=== PATIENT | female | born 1960 | race Caucasian/White ===

== ENCOUNTER → 2022-11-16 08:11 | Outpatient (CLI) | payer OTHER, SELFPAY ==
--- NOTE | 2022-11-16 | DI.MG.S_ITS ---
BILATERAL DIGITAL SCREENING MAMMOGRAM 3D/2D WITH CAD: 11/16/2022 CLINICAL: Family history of breast cancer. Routine screening. Personal history of left breast cancer. Comparison is made to exam dated: 05/04/2021 mammogram - out side. Both breasts are almost entirely fatty (category a/<25% glandular tissue). Current study was also evaluated with a Computer Aided Detection (CAD) system. Both breasts have post-operative findings. There are grouped fine heterogeneous calcifications in the left breast at 11 o'clock middle depth. These are more prominent and increased in number. Grouped calcifications in the right breast in a rim like distribution likely represent fat necrosis. No other significant masses, calcifications, or other findings are seen in either breast. IMPRESSION: INCOMPLETE: NEEDS ADDITIONAL IMAGING EVALUATION The grouped fine heterogeneous calcifications in the left breast resemble fat necrosis or sequelae of previous surgery and are indeterminate. Diagnostic mammogram for additional views to include mediolateral and spot magnification views is recommended. This exam was interpreted at Station ID: [id number]. NOTE: For mammograms, a report in lay terms will be sent to the patient. Approximately 15% of breast malignancies will not be visualized mammographically. In the management of a palpable breast mass, a negative mammogram must not discourage biopsy of a clinically suspicious lesion. Electronically Signed By: Gabriele Anderson M.D. aty/:11/17/2022 14:59:06 letter sent: Additional Imaging Needed ACR BI-RADS Category 0: Incomplete 3340F
== END ==
PROVIDERS: PCP Family Medicine; Referring Provider Family Medicine; Visit Provider Family Medicine
DX: Z12.31 Encounter for screening mammogram for malignant neoplasm of breast (principal); Z85.3 Personal history of malignant neoplasm of breast; Z80.3 Family history of malignant neoplasm of breast
CPT/HCPCS: 77063; 77067

== ENCOUNTER → 2022-12-06 08:35 | Outpatient (CLI) | payer OTHER, SELFPAY ==
--- NOTE | 2022-12-06 | DI.MG.S_ITS ---
UNILATERAL LEFT DIGITAL DIAGNOSTIC MAMMOGRAM 3D/2D WITH ADDITIONAL VIEWS: 12/06/2022 CLINICAL: Additional evaluation requested from prior study. Comparison is made to exams dated: 11/16/2022 mammogram - and 05/04/2021 mammogram - out [facility]. There are scattered areas of fibroglandular density in the left breast (category b / 25%-50% glandular tissue). The left breast has post-operative findings. There are grouped dystrophic heterogeneous calcifications in the left breast at 11 o'clock middle depth. These are seen in additional views. These are more prominent and increased in number compared to previous examination. No other significant masses or calcifications are seen in the breast. IMPRESSION: PROBABLY BENIGN The grouped dystrophic heterogeneous calcifications in the left breast resemble fat necrosis secondary to previous surgery and are probably benign. A follow-up left mammogram in 6 months is recommended to demonstrate stability. Findings and recommendations were conveyed to the patient during today's evaluation. This exam was interpreted at Station ID: [id number]. NOTE: For mammograms, a report in lay terms will be sent to the patient. Approximately 15% of breast malignancies will not be visualized mammographically. In the management of a palpable breast mass, a negative mammogram must not discourage biopsy of a clinically suspicious lesion. Electronically Signed By: Gabriele Anderson M.D. aty/:12/06/2022 09:13:05 letter sent: Followup Recommended ACR BI-RADS Category 3: Probably benign 3343F
== END ==
PROVIDERS: PCP Family Medicine; Referring Provider Family Medicine; Visit Provider Family Medicine
DX: R92.1 Mammographic calcification found on diagnostic imaging of breast (principal)
CPT/HCPCS: 77065; G0279

== ENCOUNTER → 2023-02-20 13:18 | Outpatient (CLI) | payer OTHER, SELFPAY | PROVIDERS: PCP Family Medicine; Visit Provider Physician Assistant | DX: N89.8 Other specified noninflammatory disorders of vagina (principal) | CPT/HCPCS: 87210 ==

== ENCOUNTER → 2023-02-22 08:38 | Outpatient (CLI) | payer OTHER, SELFPAY ==
[2023-02-22 09:29] LABS: Hemoglobin A1C% w Est Avg Glu 5.4 % (4.0-6.0)
[2023-02-22 09:53] LABS: Alanine Aminotransferase 26 IU/L (<35); Albumin Globulin Ratio 1.3 (1.0-2.8); Alkaline Phosphatase 74 U/L (38-126); Aspartate Aminotransferase 28 IU/L (14-36); BUN Creatinine Ratio 21.1 (6-22); Bilirubin Total 0.8 mg/dL (0.2-1.3); Blood Urea Nitrogen 16 mg/dL (7-17); Calcium 9.7 mg/dL (8.4-10.2); Carbon Dioxide 28 mmol/L (22-32); Chloride 101 mmol/L (98-107); Cholesterol 202 mg/dL (140-199); Estimated Glomerular Filt Rate > 60 mL/min (>60); Globulin 3.2 g/dL (1.7-4.1); Glucose 98 mg/dL (80-110); HDL Cholesterol 49 mg/dL (40-60); HEMOLYSIS < 15 (0-50); LDL Cholesterol Calculated 130 mg/dL (<100); Potassium 3.9 mmol/L (3.4-5.1); Sodium 137 mmol/L (137-145); Total Protein 7.2 g/dL (6.3-8.2); Triglycerides 114 mg/dL (35-150)
[2023-02-22 10:11] LABS: TSH w/ Reflex to FT4 1.72 uIU/mL (0.47-4.68)
== END ==
PROVIDERS: PCP Family Medicine; Referring Provider Family Medicine; Visit Provider Family Medicine
DX: E78.5 Hyperlipidemia, unspecified (principal); E03.9 Hypothyroidism, unspecified; I10 Essential (primary) hypertension
CPT/HCPCS: 36415; 80053; 80061; 83036; 84443

== ENCOUNTER → 2023-04-24 10:06 | Outpatient (CLI) | payer OTHER, SELFPAY ==
--- NOTE | 2023-04-24 10:07 | DI.US.S_ITS ---
PROCEDURE: US PELVIC COMPLETE INDICATIONS: ATYPICAL GLANDULAR CELLS UNSPECIFIED TECHNIQUE: Real-time scanning was performed of the pelvic organs, with image documentation. Additional endovaginal scanning was necessary due to incomplete visualization of the adnexal and endometrial structures by transabdominal scanning. COMPARISON: None. FINDINGS: Uterus: Uterus is anteverted and normal in size at the 7.2 x 4.3 x 3.6 cm. The myometrium is heterogeneous. The endometrium measures 5.2 mm combined thickness. The endometrium appears irregular with mild fluid and focal area of irregularity measuring 6 x 7 x 3 mm with no internal vascularity. Right posterior subserosal heterogeneous area measuring 1.3 x 1.6 x 1.2 cm. There are nabothian cysts. Ovaries: The bilateral ovaries are not well seen. There is shadowing in the left adnexal region with a masslike region measuring 4.9 x 2.7 x 2 cm with internal vascularity. Other: No pathologic free abdominal or pelvic fluid. IMPRESSION: 1. Endometrium measures 5.2 mm in combined thickness and appears irregular with mild fluid and focal area of irregularity measuring 6 x 7 x 3 mm. 2. Questionable right posterior subserosal heterogeneous fibroid. 3. Bilateral ovaries are not well seen. There is shadowing in the left adnexal region with a masslike region measuring 4.9 x 2.7 x 2 cm with internal vascularity which is indeterminate. Recommend an MRI of the pelvis for further evaluation of these findings. Dictated by: Eve Nelson M.D. on 04/24/2023 at 18:02 Approved by: Eve Nelson M.D. on 04/24/2023 at 18:12
== END ==
LOC: US 10:06
PROVIDERS: PCP Family Medicine; Referring Provider Obstetrics & Gynecology; Visit Provider Obstetrics & Gynecology
DX: N92.6 Irregular menstruation, unspecified (principal); R87.619 Unspecified abnormal cytological findings in specimens from cervix uteri; R93.89 Abnormal findings on diagnostic imaging of other specified body structures
CPT/HCPCS: 76830; 76856

== ENCOUNTER → 2023-06-12 08:21 | Outpatient (CLI) | payer OTHER, SELFPAY ==
[2023-06-14 10:36] LABS: Cancer Antigen 125 9.4 U/mL (0-35)
== END ==
PROVIDERS: PCP Family Medicine; Referring Provider Obstetrics & Gynecology; Visit Provider Obstetrics & Gynecology
DX: N94.89 Other specified conditions associated with female genital organs and menstrual cycle (principal); R87.619 Unspecified abnormal cytological findings in specimens from cervix uteri; R93.5 Abnormal findings on diagnostic imaging of other abdominal regions, including retroperitoneum
CPT/HCPCS: 36415; 86304

== ENCOUNTER 2023-06-15 09:28 | Day surgery (SDC) | payer OTHER, SELFPAY ==
[2023-06-04 12:24] VITALS: BMI 28.3
[2023-06-15] VITALS (7 sets, daily range): BP systolic 93–146; BP diastolic 50–96; PULSE 69–88; RESP 12–16; TEMP 36.2–37; O2SAT 98–100; BMI 28.3
--- NOTE | 2023-06-15 | PATH_ITS ---
[facility] Accession Number: [id number] No. of containers..02 Tissue . 01 Material submitted: . PART A: endocervix - ENDOCERVICAL CURETTINGS PART B: endometrium - ENDOMETRIAL CURETTINGS . 01 Diagnosis: A. ENDOCERVICAL CURETTINGS: Benign endocervical tissue. No dysplasia or malignancy. . B. ENDOMETRIUM, CURETTINGS: Features suggestive of benign endometrial polyp. Inactive glandular endometrium. No endometrioid intraepithelial neoplasia, and no malignancy. [facility] 06/21/2023 1427 Local . 01 Electronically signed: . Collette James MD, Pathologist NPI- [id number] . 01 Gross description: . Part A: ENDOCERVICAL CURETTINGS: Received in formalin are minute fragments of mucoid and hemorrhagic material measuring 1.5 x 1.5 x 0.2 cm in aggregate. Submitted in toto in 1 cassette. Part B: ENDOMETRIAL CURETTINGS: Received in formalin are minute fragments of mucoid and hemorrhagic material measuring 1.2 x 1.2 x 0.2 cm in aggregate. Submitted in toto in 1 cassette. /W[facility] 06/18/2023 1849 Local . 01 Pathologist provided ICD-10: R93.89, R87.619, N87.0 . 01 CPT . 432402 Specimen Comment: A courtesy copy of this report has been sent to [phone] Performed at: 01 [facility] [address] [place] [address], [place], [place] [id number] MD Franko Campo MD Phone: [phone]
[2023-06-15] MEDS: LACTATED RINGERS 1,000 ML 42 ML IV (10:20)
[2023-06-15] MEDS: ACETAMINOPHEN 325 MG TABLET 975 MG PO (10:22)
--- NOTE | 2023-06-15 11:17 | PM.PREOP ---
Pre-operative Note COVID-19 COVID-19 status: Not tested Interval Note History & Physical reviewed/Exam performed by Physician: Yes Changes to H&P: No
--- NOTE | 2023-06-15 12:13 | SUR.OPER ---
Lithotomy on padded OR bed, head on pillow, arms secured on padded arm boards at <90 degrees abduction. Legs secured in padded yellow fins stirrups.
[2023-06-15] MEDS: SILVER NITRATE STICK 2 EACH TOP (12:21)
--- NOTE | 2023-06-15 12:29 | PM.GYNOP.1 ---
Operative Date/Time/Diagnoses Date of procedure: 06/15/23 Time of procedure: 11:45 Pre-op diagnosis: Postmenopausal bleeding Thickened endometrial stripe on US Post-op diagnosis: other Procedure & Clinicians Procedure: Procedures Operation Date: 06/15/23 10:45 Actual Procedure Side Surgeon p Hysteroscopy with possible biopsies, dilation & currettage of uterus Mitchell Aguilar MD Indications: Chloe presentedin May for colposcopy and possible ECC/EMB due to her most recent Pap performed 02/20/2023 which shows atypical glandular cells of uncertain significance. HPV testing is negative. Patient has not had any prior abnormals and has had no postmenopausal bleeding. A follow-up pelvic ultrasound performed 04/24/2023 shows: FINDINGS: Uterus: Uterus is anteverted and normal in size at the 7.2 x 4.3 x 3.6 cm. The myometrium is heterogeneous. The endometrium measures 5.2 mm combined thickness. The endometrium appears irregular with mild fluid and focal area of irregularity measuring 6 x 7 x 3 mm with no internal vascularity. Right posterior subserosal heterogeneous area measuring 1.3 x 1.6 x 1.2 cm. There are nabothian cysts. Ovaries: The bilateral ovaries are not well seen. There is shadowing in the left adnexal region with a masslike region measuring 4.9 x 2.7 x 2 cm with internal vascularity. Other: No pathologic free abdominal or pelvic fluid. IMPRESSION: 1. Endometrium measures 5.2 mm in combined thickness and appears irregular with mild fluid and focal area of irregularity measuring 6 x 7 x 3 mm. 2. Questionable right posterior subserosal heterogeneous fibroid. 3. Bilateral ovaries are not well seen. There is shadowing in the left adnexal region with a masslike region measuring 4.9 x 2.7 x 2 cm with internal vascularity which is indeterminate. We have discussed options for further evaluation regarding the abnormal endometrial findings as well as the atypical glandular cells noted on her Pap. After discussion regarding all options, she wishes to proceed with hysteroscopy with possible biopsies, and dilation and curettage of the uterus. She presents today for her scheduled surgery. Surgeon: Mitchell Aguilar Anesthesia Type: General Operative Notes Findings: Atrophic endometrium without focal abnormalities. Both tubal ostia visualized and unremarkable. Scant ECC and EMC obtained. Closure Type: not applicable Specimen(s): endometrial curettings and other (Endocervical curettings) Estimated blood loss (mL): 5 Blood products transfused: none Procedure in detail: With the patient under general LMA in the modified dorsal lithotomy position, the perineum, vagina, and lower abdomen were prepped and draped in the usual fashion for hysteroscopy with endometrial ablation. A pre-surgical safety time-out was then taken in accordance with [facility] Main OR protocols. A bivalve speculum was inserted in the vagina and the cervix visualized. The anterior lip of the cervix was grasped with a single-tooth tenaculum and the endocervical canal was then dilated to 6 mm diameter. Hysteroscope was placed through the endocervical canal into the endometrial cavity and the cavity was visualized. There were no localized abnormalities within the endometrial cavity and the endometrium itself was unremarkable. Both tubal ostia were visualized. The hysteroscope was then withdrawn and a fractional dilation and curettage was accomplished with separate pathologic specimen submitted for the endometrial and endocervical curettings. The tenaculum was then removed from the anterior lip of the cervix and light bleeding encountered which was easily controlled with AgNO3. The speculum was then removed from the vagina and the patient awakened from anesthesia. She was then transferred to the PACU for a period of observation and recovery having tolerated the procedure well. Complications: none Post-operative Condition: stable Disposition: PACU Plan for aftercare: Routine post-op care.
[2023-06-15] MEDS: OXYCODONE IR 5 MG TABLET PO (12:44)
== END 2023-06-15 13:18 | disposition home or self-care (01) ==
PROVIDERS: PCP Family Medicine; Referring Provider Obstetrics & Gynecology; Visit Provider Obstetrics & Gynecology
PROC: 0UDB8ZZ Extraction of Endometrium, Via Natural or Artificial Opening Endoscopic (ICD-10-PCS; CPT 58558; principal; 2023-06-15 10:45)
DX: R93.89 Abnormal findings on diagnostic imaging of other specified body structures (principal); R87.619 Unspecified abnormal cytological findings in specimens from cervix uteri; N95.0 Postmenopausal bleeding
CPT/HCPCS: 58558; J1100; J1885; J2405; J2704; J3010

== ENCOUNTER → 2023-06-18 08:39 | Outpatient (CLI) | payer OTHER, SELFPAY ==
--- NOTE | 2023-06-18 08:41 | DI.MG.S_ITS ---
UNILATERAL LEFT DIGITAL DIAGNOSTIC MAMMOGRAM 3D/2D SHORT-TERM FOLLOW-UP POST MASTECTOMY: 06/18/2023 CLINICAL: Patient returns for a 6 month follow up of the left breast. Comparison is made to exams dated: 12/06/2022 mammogram, 11/16/2022 mammogram - [facility], and 05/04/2021 mammogram - out side. There are scattered areas of fibroglandular density in the left breast (category b / 25%-50% glandular tissue). The left breast has post-operative findings. There isare stable dystrophic heterogeneous calcifications in the left breast at 12 o'clock middle depth. No other significant masses or calcifications are seen in the breast. IMPRESSION: PROBABLY BENIGN The stable dystrophic heterogeneous calcifications in the left breast are most consistent with fat necrosis or a previous surgery and are probably benign. A follow-up mammogram in 6 months is recommended to demonstrate stability. If determined stable at that time, please consider return to screening mammogram schedule. This exam was interpreted at Station ID: [id number]. NOTE: For mammograms, a report in lay terms will be sent to the patient. Approximately 15% of breast malignancies will not be visualized mammographically. In the management of a palpable breast mass, a negative mammogram must not discourage biopsy of a clinically suspicious lesion. Electronically Signed By: Jesusita villalobos/:06/18/2023 09:25:40 letter sent: Followup Recommended ACR BI-RADS Category 3: Probably benign 3343F
== END ==
LOC: MAMMO 08:41
PROVIDERS: PCP Family Medicine; Referring Provider Family Medicine; Visit Provider Family Medicine
DX: R92.8 Other abnormal and inconclusive findings on diagnostic imaging of breast (principal); R92.1 Mammographic calcification found on diagnostic imaging of breast
CPT/HCPCS: 77065; G0279

== ENCOUNTER → 2023-06-30 13:29 | Outpatient (CLI) | payer OTHER, SELFPAY ==
--- NOTE | 2023-06-30 13:30 | DI.MRI.S_ITS ---
PROCEDURE: MR PELVIS WO/W CON INDICATIONS: Poss. vascular L) adnexal mass on US TECHNIQUE: Coronal HASTE, sagittal breath-hold T2 FSE; axial T1 FSE with and without fat saturation through the pelvis. Optional long- and short-axis uterine nonbreath-hold T2 FSE through the uterus. Sagittal or axial dynamic VIBE during administration of contrast. Post-contrast axial or coronal VIBE/2-D FLASH with fat saturation from the iliac crests to the symphysis. Optional diffusion weighted imaging and ADC may be performed. COMPARISON: [facility], US, US PELVIC COMPLETE, 04/24/2023, 10:24. FINDINGS: Image quality: Excellent. Uterus: Uterus is normal in size. Endometrium is normal in thickness. Junctional zone is normal in thickness at 12 mm or less. Nabothian cysts are present. Uterine fibroids are present, including a degenerating subserosal fibroid at the fundus measuring 9 mm (series 4, image 11), and a 1 cm intramural fibroid abutting the endometrial stripe at the fundus (series 4, image 13). In the left adnexa, there is a T1/T2 hypointense lesion which demonstrates enhancement similar to the surrounding myometrium (series 17, image 64). This measures 4.9 x 2.5 cm. This appears separate from the adjacent ovary (series 17, image 58). Questionable stalk is seen at the base, attached to the cervix (series 17, image 68). Adnexa: Both ovaries are atrophic, without mass. Urinary system: Bladder wall is normal in thickness. Distal ureters are non distended. Urethra appears normal in morphology. Nodes and vessels: No pelvic or inguinal adenopathy by size criteria. Iliac vessels are normal in size. Bowel and peritoneum: No pathologic free pelvic fluid. Inferior colon and small bowel loops are normal in caliber. Colonic diverticulosis without evidence of diverticulitis. Soft tissues: No inguinal hernias. No findings of pelvic floor incompetence in the absence of provocation. Bones: Marrow demonstrates normal overall signal. IMPRESSION: Left adnexal mass measuring 4.9 x 2.5 cm. Findings have imaging properties similar to the adjacent myometrium. Findings are favored to represent a pedunculated fibroid. This appears distinctly separate to the left ovary. Consider repeat ultrasound in 6-12 months to evaluate for stability. Known endometrial filling defect not well appreciated on this exam. No pelvic adenopathy. Dictated by: Humble Marte M.D. on 07/02/2023 at 9:56 Approved by: Humble Mrate M.D. on 07/02/2023 at 10:04
== END ==
PROVIDERS: PCP Family Medicine; Referring Provider Obstetrics & Gynecology; Visit Provider Obstetrics & Gynecology
DX: N94.89 Other specified conditions associated with female genital organs and menstrual cycle (principal); K57.90 Diverticulosis of intestine, part unspecified, without perforation or abscess without bleeding; N88.8 Other specified noninflammatory disorders of cervix uteri
CPT/HCPCS: 72197; A9579

== ENCOUNTER → 2023-12-26 12:37 | Outpatient (CLI) | payer OTHER, SELFPAY ==
--- NOTE | 2023-12-26 12:38 | DI.US.S_ITS ---
PROCEDURE: US PELVIC COMPLETE INDICATIONS: US MR imaging shows L adnesxa/uterine mass TECHNIQUE: Real-time scanning was performed of the pelvic organs, with image documentation. Additional endovaginal scanning was necessary due to incomplete visualization of the adnexal and endometrial structures by transabdominal scanning. COMPARISON: [facility], MR, MR PELVIS WO/W CON, 06/30/2023, 13:51. [facility], US, US PELVIC COMPLETE, 04/24/2023, 10:24. FINDINGS: Uterus: Uterus is anteverted and normal in size at 6.9 x 6.5 x 3.0 cm. The myometrium is homogeneous. The endometrium measures 6 mm combined thickness. Ovaries: The right ovary measures 2.0 x 1.0 x 1.5 cm, with a calculated ovarian volume of 1.6 cc. The left ovary measures 4.3 x 2.8 x 2.3 cm, with a calculated ovarian volume of 14.5 cc. The ovaries have a normal sonographic appearance. Less than 12 follicles can be seen in each ovary. Left ovary appears somewhat bilobed. Separate left adnexal mass is not discerned by ultrasound. Other: No pathologic free abdominal or pelvic fluid. IMPRESSION: Bilobed left ovary adjacent to the uterus may account for findings on the prior MRI. No ultrasound evidence of mass lesion. Consider additional 1 year follow-up Approved by: Reinier Ennis M.D. on 12/26/2023 at 17:58
--- NOTE | 2023-12-26 12:38 | DI.MG.S_ITS ---
BILATERAL DIGITAL DIAGNOSTIC MAMMOGRAM 3D/2D: 12/26/2023 CLINICAL: Patient returns for a 6 month follow up of the left breast, due for bilateral exam. Personal hx of left breast cancer. Comparison is made to exams dated: 06/18/2023 mammogram, 12/06/2022 mammogram, 11/16/2022 mammogram - [facility], and 05/04/2021 mammogram - out side. There are scattered areas of fibroglandular density (category b / 25%-50% glandular tissue). There are postoperative changes in the bilateral breasts with dystrophic and rim calcifications consistent with evolving fat necrosis. The previously described calcifications in the left breast at 12 o'clock middle depth demonstrate benign morphology consistent with evolving postoperative changes and fat necrosis. No other significant masses or calcifications are seen in either breast. IMPRESSION: BENIGN Bilateral postoperative changes with evolving fat necrosis and associated benign calcifications. No mammographic evidence of malignancy. Patient has history of reported bilateral nipple sparing mastectomies, however there appears to be remnant fibroglandular tissue seen in the bilateral breasts and patient cannot confirm mastectomy was performed. Recommend patient follow-up regarding surgical history (performed in [place]). If bilateral mastectomies were not performed, recommend routine annual mammogram screening. If mastectomies were performed, recommend clinical follow-up. Findings and recommendations were conveyed to the patient during today's evaluation. This exam was interpreted at Station ID: [id number]. NOTE: For mammograms, a report in lay terms will be sent to the patient. Approximately 15% of breast malignancies will not be visualized mammographically. In the management of a palpable breast mass, a negative mammogram must not discourage biopsy of a clinically suspicious lesion. Electronically Signed By: Willow Price M.D., Ph.D. eb/:12/26/2023 15:43:31 letter sent: Clinical Evaluation ACR BI-RADS Category 2: Benign
== END ==
PROVIDERS: PCP Family Medicine; Referring Provider Family Medicine; Visit Provider Family Medicine
DX: R92.8 Other abnormal and inconclusive findings on diagnostic imaging of breast (principal); Z85.3 Personal history of malignant neoplasm of breast; N94.89 Other specified conditions associated with female genital organs and menstrual cycle
CPT/HCPCS: 76830; 76856; 77066; G0279

== ENCOUNTER → 2024-02-14 08:04 | Outpatient (CLI) | payer OTHER, SELFPAY ==
[2024-02-14 08:50] LABS: Alanine Aminotransferase 20 IU/L (<35); Albumin 3.9 g/dL (3.5-5.0); Albumin Globulin Ratio 1.3 (1.0-2.8); Alkaline Phosphatase 71 U/L (38-126); Aspartate Aminotransferase 26 IU/L (14-36); BUN Creatinine Ratio 18.1 (6-22); Bilirubin Total 0.9 mg/dL (0.2-1.3); Blood Urea Nitrogen 15 mg/dL (7-17); Calcium 9.3 mg/dL (8.4-10.2); Carbon Dioxide 27 mmol/L (22-32); Chloride 103 mmol/L (98-107); Cholesterol 189 mg/dL (140-199); Estimated Glomerular Filt Rate > 60 mL/min (>60); Globulin 3.1 g/dL (1.7-4.1); Glucose 102 mg/dL (80-110); HDL Cholesterol 55 mg/dL (40-60); HEMOLYSIS < 15 (0-50); LDL Cholesterol Calculated 118 mg/dL (<100); Potassium 4.1 mmol/L (3.4-5.1); Sodium 136 mmol/L (137-145); Triglycerides 82 mg/dL (35-150)
[2024-02-14 09:18] LABS: TSH w/ Reflex to FT4 1.12 uIU/mL (0.47-4.68)
== END ==
PROVIDERS: PCP Family Medicine; Referring Provider Family Medicine; Visit Provider Family Medicine
DX: E03.9 Hypothyroidism, unspecified (principal); I10 Essential (primary) hypertension; E78.5 Hyperlipidemia, unspecified; Z85.3 Personal history of malignant neoplasm of breast
CPT/HCPCS: 36415; 80053; 80061; 84443

== ENCOUNTER → 2024-03-25 09:57 | Outpatient (CLI) | payer OTHER, SELFPAY ==
--- NOTE | 2024-03-25 09:58 | DI.RAD.S_ITS ---
PROCEDURE: XR FOOT LT MIN 3V INDICATIONS: pain distal 1st metatarsal. TECHNIQUE: 3 views of the foot were acquired. COMPARISON: None. 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 Slight hammertoe deformities 1st through 5th digits noted. Joints: Moderate degenerative change 1st MTP and mild degenerative changes interphalangeal joints noted. Soft tissues: Mild calcification of plantar tendon insertion on calcaneus. IMPRESSION: Chronic findings- as described Dictated by: Ghassan Ghosh M.D. on 03/26/2024 at 10:49 Approved by: Ghassan Ghosh M.D. on 03/26/2024 at 10:50
== END ==
PROVIDERS: PCP Family Medicine; Referring Provider Family Medicine; Visit Provider Family Medicine
DX: M79.672 Pain in left foot (principal); Q66.89 Other specified congenital deformities of feet
CPT/HCPCS: 73630

== ENCOUNTER → 2024-04-10 13:16 | Outpatient (CLI) | payer OTHER, SELFPAY | PROVIDERS: PCP Family Medicine; Visit Provider Family Medicine | DX: R35.0 Frequency of micturition (principal); R10.2 Pelvic and perineal pain; N89.8 Other specified noninflammatory disorders of vagina | CPT/HCPCS: 87077; 87086; 87186; 87210 ==

== ENCOUNTER → 2024-09-17 10:20 | Outpatient (CLI) | payer OTHER, SELFPAY ==
[2024-09-17 11:15] LABS: HEMOLYSIS < 15 (0-50); Potassium 3.9 mmol/L (3.4-5.1)
--- NOTE | 2024-09-17 11:15 | EKG_ITS ---
[place] [address] [place] [id number] Test Date: 2024-09-17 Pat Name: Chloe Walton Department: [facility] Room: Gender: Female [employer]: GISEL : 1960 Requested By: Order Number: [id number] Reading MD: Kam Flynn Measurements Intervals [place] Rate: 70 P: 23 DE: 188 QRS: -17 QRSD: 92 T: 20 QT: 394 QTc: 425 Interpretive Statements Normal sinus rhythm Cannot rule out Anterior infarct , age undetermined Electronically Signed On 09-18-2024 13:47:16 PDT by Kam Flynn
== END ==
PROVIDERS: PCP Family Medicine; Referring Provider Podiatrist; Visit Provider Podiatrist
DX: Z01.818 Encounter for other preprocedural examination (principal); E87.0 Hyperosmolality and hypernatremia
CPT/HCPCS: 36415; 84132; 93005

== ENCOUNTER → 2025-02-18 08:09 | Outpatient (CLI) | payer OTHER, SELFPAY ==
[2025-02-18 10:07] LABS: Alanine Aminotransferase 15 IU/L (<35); Albumin 4.2 g/dL (3.5-5.0); Albumin Globulin Ratio 1.5 (1.0-2.8); Alkaline Phosphatase 82 U/L (38-126); Blood Urea Nitrogen 17 mg/dL (7-17); Calcium 8.9 mg/dL (8.4-10.2); Carbon Dioxide 26 mmol/L (22-32); Chloride 106 mmol/L (98-107); Cholesterol 194 mg/dL (140-199); Estimated Glomerular Filt Rate > 60 mL/min (>60); Globulin 2.8 g/dL (1.7-4.1); Glucose 96 mg/dL (70-99); HDL Cholesterol 55 mg/dL (40-60); HEMOLYSIS < 15 (0-50); Potassium 4.4 mmol/L (3.4-5.1); Sodium 140 mmol/L (137-145); Total Protein 7.0 g/dL (6.3-8.2); Triglycerides 107 mg/dL (35-150)
[2025-02-18 10:31] LABS: TSH w/ Reflex to FT4 0.90 uIU/mL (0.47-4.68)
[2025-02-18 11:04] LABS: HIV 1 & 2 Ab/Ag 4th Gen Combo NEGATIVE (NEGATIVE); Hep C Virus Ab w/Reflex Quant NEGATIVE s/c (NEGATIVE)
== END ==
PROVIDERS: PCP Family Medicine; Referring Provider Family Medicine; Visit Provider Family Medicine
DX: I10 Essential (primary) hypertension (principal); E03.9 Hypothyroidism, unspecified; E78.5 Hyperlipidemia, unspecified
CPT/HCPCS: 36415; 80053; 80061; 84443; 86803; 87389